=== PATIENT | male | born 1955 | race African-American/Black ===

== ENCOUNTER 2016-11-14 02:29 | Emergency (ER) | payer OTHER ==
[~2016-11-14] VITALS: Ht 180.3 cm; Wt 79.8 kg
[2016-11-14 03:15] LABS: BASOPHILS 0.8 % (0.0-2.0); HEMOGLOBIN 14.2 gm/dL (14.0-18.0); LYMPHOCYTES 35.6 % (24.0-44.0); MCH 30.4 pg (26.0-34.0); MCV 92.1 fL (80.0-100.0); PLATELET COUNT 369 thou/uL (150-400); POLYS 51.6 % (36.0-66.0); RBC 4.66 mil/uL (4.50-6.00); RDW 13.7 % (10.5-14.5); WBC 7.7 thou/uL (4.0-11.0)
[2016-11-14 03:16] LABS: MANUAL DIFF NO
[2016-11-14 03:21] LABS: CALCIUM 9.2 mg/dL (8.5-10.1); CREATININE 1.5 mg/dL (0.7-1.3); POTASSIUM 4.2 mmol/L (3.5-5.1)
[2016-11-14 03:27] LABS: ALBUMIN 3.7 g/dL (3.4-5.0); TOTAL BILIRUBIN 0.2 mg/dL (<0.1-1.0); TOTAL PROTEIN 7.7 g/dL (6.4-8.2)
[2016-11-14 04:15] LABS: URINE BILIRUBIN NEGATIVE (Negative); URINE BLOOD NEGATIVE (Negative); URINE COLOR YELLOW; URINE GLUCOSE-RANDOM* NEGATIVE (Negative); URINE KETONES NEGATIVE (Negative); URINE LEUKOCYTES-REFLEX NEGATIVE (Negative); URINE PROTEIN (DIPSTICK) TRACE (Negative); URINE UROBILINOGEN 0.2 E.U./dl (0.2-1.0)
[2016-11-14] MEDS ORDERED: PROBIOTIC & AC1 EACH PO (05:01)
[2016-11-14] MEDS ORDERED: COLACE100 MG PO (05:01)
[2016-11-14] MEDS ORDERED: BENTYL 20 MG TA20 M1 PO (05:01)
[2016-11-14 05:31] VITALS: BP 140/83
== END 2016-11-14 05:33 | disposition home or self-care (01) ==
LOC: ER 02:29
PROVIDERS: Emergency Medicine
DX: R10.13 Epigastric pain (principal); R14.0 Abdominal distension (gaseous); F10.99 Alcohol use, unspecified with unspecified alcohol-induced disorder; Z91.041 Radiographic dye allergy status

== ENCOUNTER 2020-09-09 11:58 | Emergency (ER) | payer OTHER ==
[~2020-09-09] VITALS: Ht 180.3 cm; Wt 83.9 kg
[~2020-09-09 11:58] MED LIST: BENTYL 20 MG TA20 M1 PO; COLACE100 MG PO; PROBIOTIC & AC1 EACH PO
[2020-09-09 12:31] LABS: ABSOLUTE NEUTROPHILS 5.6 thou/uL (1.4-8.2); BASOPHILS 0.6 % (0.0-2.0); EOSINOPHILS 0.9 % (0.0-3.0); HEMATOCRIT 37.4 % (42.0-52.0); HEMOGLOBIN 12.7 gm/dL (14.0-18.0); LYMPHOCYTES 22.9 % (24.0-44.0); MCH 31.8 pg (26.0-34.0); MCHC 34.1 g/dL (28.0-37.0); MCV 93.3 fL (80.0-100.0); MONOCYTES 6.9 % (1.0-8.0); PLATELET COUNT 335 thou/uL (150-400); POLYS 68.7 % (36.0-66.0); RDW 13.9 % (10.5-14.5); WBC 8.1 thou/uL (4.0-11.0)
[2020-09-09 12:39] LABS: CALCIUM 8.6 mg/dL (8.5-10.1); CREATININE 1.5 mg/dL (0.7-1.3); POTASSIUM 3.8 mmol/L (3.5-5.1)
[2020-09-09 12:45] LABS: ALBUMIN 3.5 g/dL (3.4-5.0); TOTAL BILIRUBIN 0.5 mg/dL (0.2-1.0); TOTAL PROTEIN 7.6 g/dL (6.4-8.2)
[2020-09-09] MEDS ORDERED: AMOXICILLIN500 M1 PO (13:22)
[2020-09-09] MEDS ORDERED: CARAFATE 1 GM TA1 G1 PO (13:22)
[2020-09-09 13:33] VITALS: BP 127/84
== END 2020-09-09 13:33 | disposition home or self-care (01) ==
LOC: ER 11:58
PROVIDERS: Nurse Practitioner
DX: J02.9 Acute pharyngitis, unspecified (principal); R05 Cough; R19.7 Diarrhea, unspecified; K21.9 Gastro-esophageal reflux disease without esophagitis; Z79.899 Other long term (current) drug therapy; Z91.041 Radiographic dye allergy status